=== PATIENT | female | born 1985 | race Caucasian/White ===

== ENCOUNTER 2017-11-21 10:03 | Emergency (ER) | payer OTHER ==
[2017-11-21 10:07] VITALS: BP 128/75; PULSE 89; TEMP 98.3; BMI 30.2
[2017-11-21] MEDS ORDERED: ACETAMINOPHEN 500 MG TABLET (FP) PO ONE (10:39)
--- NOTE | 2017-11-21 10:40 | PDOC ---
History of Present Illness - General Chief Complaint: Toothache Stated Complaint: TOOTHACHE Time Seen by Provider: 11/21/17 10:30 History Source: Patient Exam Limitations: No Limitations - History of Present Illness Initial Comments: 11/21/17 16:24 Came with family with complaints of left and right sided molar pain. Has multiple areas of discoloration and decay. Was seen by dentist 3 months ago and told needed some dental work but was newly . Patient is now 12 weeks and states pain has escalated and was concerned about dental abscess. Denies fever, denies swelling to gums or face, denies further injuries to teeth. Timing/Duration: 24 hours Severity: mild, moderate Modifying Factors: improves with: other (lower left and right molar pain. ) Associated Symptoms: reports: denies symptoms Past History - Travel Traveled outside of the country in the last 30 days: No Close contact w/someone who was outside of country & ill: No - Past Medical History Allergies/Adverse Reactions: Allergies Allergy/AdvReac Type Severity Reaction Status Date / Time No Known Allergies Allergy Verified 11/21/17 10:07 Home Medications: Ambulatory Orders Amoxicillin - [Amoxicillin 500mg Capsule -] 500 mg PO TID #21 capsule 11/21/17 COPD: No - Suicide/Smoking/Psychosocial Hx Smoking History: Never smoked Hx Alcohol Use: No Drug/Substance Use Hx: No Substance Use Type: None Review of Systems - Review of Systems Able to Perform ROS?: Yes Is the patient limited [place] proficient: Yes Constitutional: Yes: Symptoms Reported, See HPI, Malaise. No: Fever HEENTM: Yes: Mouth Pain, Dental Problems, Other. No: Mouth Swelling Respiratory: Yes: See HPI. No: Symptoms reported Integumentary: Yes: Symptoms Reported, See HPI *Physical Exam - Vital Signs Last Vital Signs Temp Pulse Resp BP Pulse Ox 98.3 F 89 20 128/75 99 11/21/17 10:03 11/21/17 10:03 11/21/17 10:03 11/21/17 10:03 11/21/17 10:03 - Physical Exam General Appearance: Yes: Nourished, Appropriately Dressed, Apparent Distress, Mild Distress, Moderate Distress HEENT: positive: JENNIFER, TMs Normal, Other (multiple areas of decay to bilateral second lower molars, no gingival swelling or abscess, full range of motion at jaw, no facial swelling.) Respiratory/Chest: positive: Lungs Clear Gastrointestinal/Abdominal: positive: Soft Musculoskeletal: positive: Normal Inspection Extremity: positive: Normal Capillary Refill, Normal Inspection Integumentary: positive: Normal Color, Dry, Warm, Pale Neurologic: positive: horse groomer II-XII NML intact, Fully Oriented, Alert, Normal Mood/ Affect, Normal Response, Motor Strength 03/27 Medical Decision Making - Medical Decision Making 11/21/17 patient is 12 weeks without fever, and without any obvious visual or palpable abscess. Discussed need for caution due to first trimester and any medications and patient agrees we will hold on antibiotic therapy and use Tylenol for pain relief. Reviewed therapeutic and conservative homeopathic measures and encouraged to follow up with dentist on Thursday *DC/Admit/Observation/Transfer Diagnosis at time of Disposition: Tooth ache - Discharge Dispostion Disposition: HOME Condition at time of disposition: Stable Admit: No - Prescriptions Prescriptions: Amoxicillin - [Amoxicillin 500mg Capsule -] 500 mg PO TID #21 capsule - Referrals - Patient Instructions Printed Discharge Instructions: DI for Dental Pain Additional Instructions: Rest, drink lots of fluids: Teas, water, soups Saltwater gargles/ keep mouth clean and rinse after each meal May use wet teabag for pain relief to area Avoid hard chewing foods, stick to ice cream, Jell-O, yogurt etc. Tylenol for fever and pain Start amoxicillin if fevers start greater than 101, facial swelling, exquisite pain or redness. And follow-up immediately with dentist Complete all medication as prescribed Seek dental appointment as soon as possible for evaluation of dental injury/pain Followup with private physician in one to 2 days as needed Return to emergency department for worsened symptoms, fevers, swelling to face or worsened pain - Post Discharge Activity Forms/Work/School Notes: Back to Work
[2017-11-21] MEDS ORDERED: ACETAMINOPHEN 500 MG TABLET (FP) ONE (10:41)
== END 2017-11-21 10:55 | disposition home or self-care (01) ==
LOC: JERFT 10:03
DX: K08.89 Other specified disorders of teeth and supporting structures (principal)
CPT/HCPCS: 99281-25

== ENCOUNTER 2019-12-26 14:24 | Emergency (ER) | payer OTHER ==
[2019-12-26 14:39] VITALS: BP 106/71; PULSE 112; TEMP 98.2; BMI 31.2
--- NOTE | 2019-12-26 17:45 | PDOC ---
History of Present Illness - General Chief Complaint: Sore Throat Stated Complaint: NAUSEA VOMITING Time Seen by Provider: 12/26/19 15:37 - History of Present Illness Initial Comments: 12/26/19 17:41 34-year-old female without comorbidities presents for evaluation of chest pain and nausea x2 days Past History - Past Medical History Allergies/Adverse Reactions: Allergies Allergy/AdvReac Type Severity Reaction Status Date / Time No Known Allergies Allergy Verified 12/26/19 14:39 Home Medications: Ambulatory Orders Amoxicillin - [Amoxicillin 500mg Capsule -] 500 mg PO TID #21 capsule 11/21/17 COPD: No - Immunization History Immunization Up to Date: Yes - Psycho Social/Smoking Cessation Hx Smoking History: Never smoked Have you smoked in the past 12 months: No Information on smoking cessation initiated: No Hx Alcohol Use: No Drug/Substance Use Hx: No Substance Use Type: None Review of Systems - Review of Systems Constitutional: No: Fever Cardiac (ROS): Yes: Chest Pain ABD/GI: Yes: Nausea. No: Vomiting *Physical Exam - Vital Signs Last Vital Signs Temp Pulse Resp BP Pulse Ox 98.2 F 112 H 18 106/71 98 12/26/19 14:35 12/26/19 14:35 12/26/19 14:35 12/26/19 14:35 12/26/19 14:35 - Physical Exam 12/26/19 17:42 GENERAL: The patient is awake, alert, and fully oriented, in no acute distress. HEAD: Normal with no signs of trauma. EYES: sclera anicteric, conjunctiva clear. ENT: Ears normal tympanic membranes normal oropharynx clear uvula midline NECK: Normal range of motion LUNGS: Breath sounds equal, clear to auscultation bilaterally. No wheezes, and no crackles. HEART: S1 and S2 without murmur, rub or gallop. ABDOMEN: Soft, nontender, normoactive bowel sounds. No guarding, no rebound. No masses. EXTREMITIES: Normal range of motion, no edema. No clubbing or cyanosis. No cords, erythema, or tenderness. NEUROLOGICAL: Cranial nerves II through XII grossly intact. PSYCH: Normal mood, normal affect. SKIN: Warm, Dry, normal turgor, no rashes or lesions noted. ED Treatment Course - RADIOLOGY Radiology Studies Ordered: Category Date Time Status CHEST PA & LAT [RAD] Stat Radiology 12/26/19 16:21 Taken Medical Decision Making - Medical Decision Making 12/26/19 17:43 C chest x-ray and EKG normal most likely a viral gastroenteritis developing patient has 2 sick children with the same Discharge - Discharge Information Problems reviewed: Yes Clinical Impression/Diagnosis: Viral gastroenteritis Condition: Stable Disposition: HOME - Admission No - Follow up/Referral Referrals: Eun Syed MD [Staff Physician] - - Patient Discharge Instructions Additional Instructions: Return to the emergency room for worsening symptoms. Small sips of Pedialyte throughout the day to maintain hydration. Tylenol and Motrin as needed for fever and as directed. Without fail follow-up with your primary care physician in 1 to 2 days for further evaluation and treatment options. - Post Discharge Activity
--- NOTE | 2019-12-27 09:27 | EKG ---
Test Reason : Blood Pressure : / mmHG Vent. Rate : 098 BPM Atrial Rate : 098 BPM P-R Int : 146 ms QRS Dur : 068 ms QT Int : 340 ms P-R-T Axes : 050 046 034 degrees QTc Int : 434 ms NORMAL SINUS RHYTHM POSSIBLE ANTERIOR INFARCT , AGE UNDETERMINED ABNORMAL ECG NO PREVIOUS ECGS AVAILABLE Confirmed by Teja Talbert MD ([id number]) on 12/27/2019 9:26:49 AM Referred By: Confirmed By:Teja Talbert MD
== END 2019-12-26 17:56 | disposition home or self-care (01) ==
LOC: JERFT 14:24
DX: A08.4 Viral intestinal infection, unspecified (principal); B97.89 Other viral agents as the cause of diseases classified elsewhere
CPT/HCPCS: 71046-TC-FY; 93005; 93010; 99282-25